=== PATIENT | female | born 1980 | race Caucasian/White ===

== ENCOUNTER 2018-07-19 17:11 | Inpatient (IN) | payer OTHER ==
[~2018-07-19] VITALS: Ht 160 cm; Wt 87.2 kg
[2018-07-19] MEDS ORDERED: OXYTOCIN 30 UNITS/LR 500 ML IV PRN (18:00)
[2018-07-19] MEDS ORDERED: OXYTOCIN 30 UNITS/LR 500 ML IV SCH (18:00)
[2018-07-19] MEDS ORDERED: CARBOPROST 250 MCG INJ IM PRN (18:00)
[2018-07-19] MEDS ORDERED: MISOPROSTOL 200 MCG TAB PR PRN ×2 (18:00→18:30)
[2018-07-19] MEDS ORDERED: CEFAZOLIN 2 GM/50 ML (PMX) 50 ML IVPB SCH (18:00)
[2018-07-19] MEDS ORDERED: METHYLERGONOVINE 0.2 MG INJ IM PRN (18:00)
[2018-07-19 18:08] VITALS: Ht 160 cm; Wt 87.2 kg
[2018-07-19 18:09] VITALS: BP 127/59; PULSE 82; RESP 18
[2018-07-19] MEDS: LACTATED RINGER'S 1,000 ML IV SCH ×2 (18:11→18:44)
[2018-07-19] MEDS ORDERED: LACTATED RINGER'S 1,000 ML IV SCH (18:26)
[2018-07-19] MEDS ORDERED: NA PHOSPHATE/BIPHOS 133 ML ENEMA PR PRN (18:30)
[2018-07-19] MEDS ORDERED: OXYCODONE/ACETAMINOPHEN (5/325) TAB PO PRN (18:30)
[2018-07-19] MEDS ORDERED: LANOLIN HPA 1 PKT TOP PRN (18:30)
--- NOTE | 2018-07-19 18:30 | HP ---
Date/Time of Note Date/Time of Note DATE: 07/19/18 TIME: 18:27 OB - History Hx of Present Free Text/Dictation 37 YO with IUP at 39 weeks with EDC 07/26/2018 with history of previous deliveries x 2, who desires to have repeat delivery and Permanent sterilization. I discussed with the patient the risks, benefits, indications, and alternatives of procedure including but not limited to risks of infection, bleeding, damage to other organs, bowel, bladder, hernia formation, scar formation, possibility of blood transfusion, possible need for emergency hysterectomy, as well as the fact that tubal ligation may fail and there is 1 to 2% risk of failure over lifetime of tubal ligations and the fact that tubal ligation is permanent and irreversible. She was allowed to ask questions. All her questions were answered. Informed consent has been obtained. Care: None Ultrasounds: Normal mid trimester US Obstetrical Complications: None Medical Complications: None Past Family/Social History * Past Medical, Surgical, Family and Obstetric Histories reviewed from chart. OB Admission Exam Vital Signs Vital Signs Vital Signs Date Temp Pulse Resp B/P (MAP) Pulse Ox O2 O2 Flow FiO2 Time Delivery Rate 07/19/18 98.0 82 18 127/59 18:09 (81) Physical Exam HEENT: WNL Heart: Rhythm Normal Lungs: Clear, Equal Abdomen: WNL Extremities: Normal Reflexes: Normal Last 72 hours Lab Results CBC & BMP 07/19/18 18:00 OB Assessment/Plan Other Assessment: Assessment: IUP 39 weeks h/o previous Desires repeat Desires permanent sterilization Other plan: Repeat Delivery Tubal ligation may be done by either salpingectomy or modified Vadim BTL RUSTY TAMAYO MD Jul 19, 2018 18:30
--- NOTE | 2018-07-19 20:10 | OPR ---
Date/Time of Note Date/Time of Note DATE: 07/19/18 TIME: 20:07 Operative Report Procedure Date: Jul 19, 2018 Preoperative Diagnosis previous delivery Desires repeat delivery Desires permanent sterilization Postoperative Diagnosis Same Operation/Procedure Performed Repeat delivery and bilateral salpingectomies Surgeon Pierre Luevano MD Flag [employer] Dr. Serrano Anesthesia Type: spinal Estimated Blood Loss: other (700) Transfusion none Specimen segments of bilateral tubes Grafts/Implants none Tubes/Drains Sultana Cath Complications none Pt Condition Post Procedure: stable Disposition: PACU Procedure Description The risks, benefits, indications, alternatives of procedure including, but not limited to risk of infection, bleeding, damage to other organs, bowel, bladder, hernia formation, scar formation, possibility of blood transfusions, the risks of tubal ligation such as failure and future pregnancies were discussed with the patient. The fact that BTL is permanent and irreversible also discussed with patient. She was allowed to ask questions. All her questions were answered. Informed consent was obtained. DESCRIPTION OF PROCEDURE: She was taken to the operating room. Spinal anesthesia was induced. She was prepped and draped in the usual sterile fashion. Surgical time out one. Anesthesia was tested to be adequate. With permission from anesthesiologist, a knife was used to make a Pfannenstiel skin incision. The incision was taken down in layers. The fascia was cut, undermined and from the underlying muscle using sharp and blunt dissection. All the bleeders were cauterized. Peritoneum was entered bluntly. A low transverse incision was developed over the uterus. Amniotic fluid was clear and adequate. A viable in vertex presentation was delivered without any difficulty. The cord was clamped and cut, handed to awaiting team. Placenta was then delivered. Uterus was exteriorized, wrapped around a moist lap. Inside uterus was cleaned using a dry lap. All residual membranes were removed. The uterine incision was then closed using #1 Monocryl in 2 layers. A 5 cm distal end of the right tube was ligated 3 times using 0 plain tie and the ligated portion was cut, sent to pathology. Same procedure was done on the contralateral side. The uterus was inserted back inside the abdominal cavity. Irrigation was done carefully. Careful evaluation of the uterine incision revealed no further bleeding. The tubal ligation sites were evaluated carefully. There was no bleeding. The peritoneum and rectus muscles and fascia were evaluated. All bleeders cauterized. Peritoneum was closed using 2-0 Monocryl. At this time, the count was correct. Rectus muscle was reapproximated using 2-0 Monocryl. Rectus fascia was closed using #1 Vicryl. Subcutaneous tissue was cleaned and irrigated. All bleeders cauterized and the skin closed using 4-0 Monocryl. All counts correct. PIERRE LUEVANO MD Jul 19, 2018 20:10
--- NOTE | 2018-07-19 20:16 | PREAC ---
Date/Time of Note Date/Time of Note DATE: 07/19/18 TIME: 20:15 Anesthesia Eval and Record Evaluation Time Pre-Procedure Interview DATE: 07/19/18 TIME: 18:15 Age 37 Sex female NPO: 8 hrs Preoperative diagnosis iup at 38 weeks Planned procedure repeat c section Past Medical History Past Medical History: None Surgery & Anesthesia Issues No known issue Meds Anticoagulation: No Beta Sudha within 24 hr: No Reason Beta Sudha not given: Pt. not on B-Sudha Current Medications Lactated Ringer's 1,000 ml @ 125 mls/hr Q8H IV Last administered on 07/19/18at 18:44; Admin Dose 125 MLS/HR; Start 07/19/18 at 17:45 Cefazolin Sodium/ Dextrose 50 ml @ 100 mls/hr ONCE IVPB ; Start 07/19/18 at 18:00 Oxytocin/Lactated Ringer's 500 ml @ 125 mls/hr POST IV ; Start 07/19/18 at 18:00 Oxytocin/Lactated Ringer's 500 ml @ 0 mls/hr ONCE PRN IV .VAGINAL BLEEDING; Start 07/19/18 at 18:00 Methylergonovine Maleate (Methergine) 0.2 mg ONCE PRN IM .VAGINAL BLEEDING; Start 07/19/18 at 18:00 Carboprost Tromethamine (Hemabate) 250 mcg ONCE PRN IM .VAGINAL BLEEDING; Start 07/19/18 at 18:00 Misoprostol (Cytotec) 1,000 mcg ONCE PRN [place] .VAGINAL BLEEDING; Start 07/19/18 at 18:00 Lactated Ringer's 1,000 ml @ 125 mls/hr Q8H IV ; Start 07/19/18 at 18:26; Stop 07/19/18 at 22:25 Oxycodone/ Acetaminophen (Percocet (5/ 325)) 1 tab Q4H PRN PO .PAIN 4-6; Start 07/19/18 at 18:30 Oxycodone/ Acetaminophen (Percocet (5/ 325)) 2 tab Q4H PRN PO .PAIN 7-10; Start 07/19/18 at 18:30 Ibuprofen (Motrin) 600 mg Q6 PO ; Start 07/20/18 at 18:00 Simethicone (Mylicon) 160 mg Q8H PRN PO .GAS; Start 07/19/18 at 18:30 Senna/Docusate Sodium (Senokot-S) 1 tab BID PO ; Start 07/19/18 at 21:00 Sodium Biphosphate/ Sodium Phosphate (Fleet Enema) 133 ml DAILY PRN [place] .CONSTIPATION; Start 07/19/18 at 18:30 Lanolin (Lanolin Hpa) 1 applic BEDSIDE MEDICATION PRN TOP .NIPPLES; Start 07/19/18 at 18:30 Diphtheria/ Tetanus/Acell Pertussis (Adacel) 0.5 ml ONCE ONCE IM* ; Start 07/22/18 at 09:00; Stop 07/22/18 at 09:01 Measles/Mumps/ Rubella Vaccine Live (Mmr Ii Vaccine) 0.5 ml ONCE ONCE SC* ; Start 07/22/18 at 09:00; Stop 07/22/18 at 09:01 Misoprostol (Cytotec) 1,000 mcg ONCE PRN [place] .VAGINAL BLEEDING; Start 07/19/18 at 18:30 Meds reviewed: Yes Allergies Coded Allergies: No Known Allergy (Unverified , 07/19/18) Allergies Reviewed: Yes Labs/Studies Labs Reviewed: Reviewed by anesthesiologist Result Diagram: 07/19/18 1800 Laboratory Tests 07/19/18 18:00 Blood Bank Test 07/19/18 18:00 Antibody Screen NEGATIVE Blood Type O POSITIVE Rh Immune Globulin Candidate NO test: Positive Pre-procedure Exam Last vitals Vital Signs Date Temp Pulse Resp B/P (MAP) Pulse Ox O2 O2 Flow FiO2 Time Delivery Rate 07/19/18 98.0 82 18 127/59 18:09 (81) Airway: Adequate mouth opening, Adequate thyromental dist Mallampati: Mallampati II Teeth: Normal Lung: Normal Heart: Normal ASA Physical Status ASA physical status: 2 Emergency: None Planned Anesthetic Neuraxial: Spinal Planned Pain Management Sub-arachniod narcotics, Parenteral pain med Pre-operative Attestations Prior to commencing anesthesia and surgery, the patient was re-evaluated, there was verification of: *The patient's identity *The results of appropriate recent lab work and preoperative vital signs *The above evaluation not changing prior to induction *Anesthetic plan, risk benefits, alternative and complications discussed with patient/family; questions answered; patient/family understands, accepts and wi shes to proceed. ARLENE CELAYA Jul 19, 2018 20:16
[2018-07-19] MEDS ORDERED: DIPHENHYDRAMINE 50 MG INJ IV PRN (20:30)
[2018-07-19] MEDS ORDERED: NALOXONE (0.4 MG/ML) INJ IV PRN (20:30)
[2018-07-19] MEDS ORDERED: ZOLPIDEM 5 MG TAB PO PRN (20:30)
[2018-07-19] MEDS ORDERED: ONDANSETRON 4 MG INJ IV PRN (20:30)
[2018-07-19] MEDS ORDERED: HYDROmorphONE 0.5 MG/0.5 ML SYG IV PRN ×2 (20:30)
--- NOTE | 2018-07-19 22:14 | PAC ---
Date/Time of Note Date/Time of Note DATE: 07/19/18 TIME: 22:14 Post-Anesthesia Notes Post-Anesthesia Note Last documented vital signs Vital Signs Date Temp Pulse Resp B/P (MAP) Pulse Ox O2 O2 Flow FiO2 Time Delivery Rate 07/19/18 98.0 82 18 127/59 22:09 (81) Activity: WNL Respiratory function: WNL Cardiovascular function: WNL Mental status: Baseline Pain reasonably controlled: Yes Hydration appropriate: Yes Nausea/Vomiting absent: Yes ARLENE CELAYA Jul 19, 2018 22:14
[2018-07-19] MEDS: KETOROLAC 30 MG INJ IV PRN (22:25)
[2018-07-20] MEDS: SENNA/DOCUSATE NA (8.6MG/50MG) TAB PO SCH ×3 (02:29→20:42)
[2018-07-20 03:02] VITALS: BP 99/53; PULSE 88; RESP 18
[2018-07-20 07:48] VITALS: BP 97/52; PULSE 85; RESP 16
[2018-07-20] MEDS: LACTATED RINGER'S 1,000 ML IV SCH ×2 (10:35→17:45)
[2018-07-20 13:45] VITALS: BP 111/56; PULSE 91; RESP 18
[2018-07-20 15:49] VITALS: BP 118/58; PULSE 97; RESP 20
[2018-07-20] MEDS: KETOROLAC 30 MG INJ IV PRN (15:49)
[2018-07-20] MEDS: IBUPROFEN 600 MG TAB PO SCH (17:56)
[2018-07-20 20:05] VITALS: BP 97/60; PULSE 103; RESP 18
[2018-07-20] MEDS ORDERED: FERROUS SULFATE (EC) 325 MG TAB PO SCH (21:00)
[2018-07-20] MEDS: OXYCODONE/ACETAMINOPHEN (5/325) TAB PO PRN (23:01)
[2018-07-21] MEDS: OXYCODONE/ACETAMINOPHEN (5/325) TAB PO PRN
[2018-07-21] MEDS: IBUPROFEN 600 MG TAB PO SCH ×5 (00:15→23:39)
[2018-07-21 03:20] VITALS: BP 90/56; PULSE 98; RESP 20
[2018-07-21 08:00] VITALS: BP 111/66; PULSE 97; RESP 20
[2018-07-21] MEDS: SENNA/DOCUSATE NA (8.6MG/50MG) TAB PO SCH ×2 (09:20→21:25)
[2018-07-21] MEDS: FERROUS SULFATE (EC) 325 MG TAB PO SCH ×2 (12:17→21:24)
--- NOTE | 2018-07-21 15:19 | DS ---
Date/Time of Note Date/Time of Note DATE: 07/21/18 TIME: 15:17 Obstetrical Discharge Record Final Diagnosis Final Diagnosis: Term delivered Vaginal Delivery Obstetrical Delivery: Bilateral Tubal Ligation Section Section: Repeat Complications Other (postop was signiicant for asympomatic anemia. i offered blood transfusion and she declined. i offered extra days in hospital, but she is very motivated to go home now. + flaus. denies anemia sxs. ) Rupture of Membranes: No Condition on Discharge Physical Assessment Voiding: Yes Bowel Movement: Yes Breast: Soft, non-tender, Filling Fundus: Firm Abdomen and Incision: soft, appropriate tenderness. incision is clean and intact Calf Tenderness: No Patient Condition: Good RUSTY TAMAYO MD Jul 21, 2018 15:19
[2018-07-21 16:00] VITALS: BP 120/59; PULSE 101; RESP 20
[2018-07-21 19:55] VITALS: BP 104/53; PULSE 104; RESP 20
[2018-07-22 03:15] VITALS: BP 90/52; PULSE 98; RESP 19
[2018-07-22] MEDS: IBUPROFEN 600 MG TAB PO SCH (05:30)
[2018-07-22 08:00] VITALS: BP 123/56; PULSE 97; RESP 18
[2018-07-22] MEDS ORDERED: DIPHTH/TET/ACEL PERTUSS (ADULT) 0.5 ML VIAL IM* ONE (09:00)
[2018-07-22] MEDS ORDERED: MEASLES,MUMPS,RUBELLA VACCINE INJ SC* ONE (09:00)
[2018-07-22] MEDS: FERROUS SULFATE (EC) 325 MG TAB PO SCH (09:04)
[2018-07-22] MEDS: OXYCODONE/ACETAMINOPHEN (5/325) TAB PO PRN (09:04)
[2018-07-22] MEDS: SENNA/DOCUSATE NA (8.6MG/50MG) TAB PO SCH (09:04)
== END 2018-07-22 11:45 | disposition home or self-care (01) | DRG 785 ==
LOC: L-D 17:11 → PP1 07-20 14:04
PROVIDERS: ADMIT Specialist; ATTEND Specialist
PROC: 0UB70ZZ Excision of Bilateral Fallopian Tubes, Open Approach (ICD-10-PCS; 2018-07-19)
PROC: 10D00Z1 Extraction of Products of Conception, Low, Open Approach (ICD-10-PCS; principal; 2018-07-19 18:00)
DX: O34.211 Maternal care for low transverse scar from previous cesarean delivery (principal); O90.81 Anemia of the puerperium; D64.9 Anemia, unspecified; Z3A.39 39 weeks gestation of pregnancy; Z37.0 Single live birth; Z30.2 Encounter for sterilization
CPT/HCPCS: 85014; 85018; 85025; 85610; 85730; 86592; 86850; 86900; 86901; 87340; 88302; 99464; J1885; J2590; J7120